=== PATIENT | female | born 1950 | race Hispanic/Latino ===

== ENCOUNTER 2017-12-21 21:06 | Emergency (ER) | payer MEDICARE, OTHER ==
[2017-12-21] MEDS ORDERED: AMOXICILLIN/POTASSIUM CLAV 875-125 TABLET PO ONE (21:48)
[2017-12-21] MEDS ORDERED: TETANUS/DIPHTHERIA TOXOID [ADULT] 0.5 ML VIAL IM ONE (21:49)
== END 2017-12-21 22:20 | disposition home or self-care (01) ==
LOC: EDH 21:06
DX: S80.812A Abrasion, left lower leg, initial encounter (principal); W54.0XXA Bitten by dog, initial encounter; Y93.89 Activity, other specified; Y92.89 Other specified places as the place of occurrence of the external cause; Y99.8 Other external cause status
CPT/HCPCS: 90471; 90714

== ENCOUNTER → 2018-12-30 | Outpatient (CLI) | payer OTHER | END | disposition home or self-care (01) | LOC: RAH 16:50 | PROVIDERS: ATTEND Internal Medicine | DX: M16.12 Unilateral primary osteoarthritis, left hip (principal) | CPT/HCPCS: 73502 ==

== ENCOUNTER → 2023-10-26 | Outpatient (CLI) | payer MEDICARE | END | disposition home or self-care (01) | LOC: RAH 10-25 15:20 | PROVIDERS: ATTEND Internal Medicine | DX: Z01.818 Encounter for other preprocedural examination (principal); R05.9 Cough, unspecified | CPT/HCPCS: 71046 ==

== ENCOUNTER 2023-11-12 05:00 | Observation (INO) | payer MEDICARE ==
[2023-11-07 11:46] VITALS: BP 127/73; PULSE 83; RESP 18
[2023-11-12] VITALS (28 sets, daily range): BP systolic 105–139; BP diastolic 42–79; PULSE 64–94; RESP 10–18; O2SAT 95
[~2023-11-12] VITALS: Ht 165.1 cm; Wt 85.9 kg
[~2023-11-12 05:00] MED LIST: ATOR20TA65 PO; DICL75TA5 PO; DICY10CA2 PO; ESOM20CA39 PO; GABA600T10 PO; GLIM1TAB18 PO; LORA10TA7 PO; LOSA100T59 PO; METO-391 PO; SEMA1PEN3 SQ
[2023-11-12] MEDS ORDERED: LIDOCAINE PF 100MG/5ML (2%) SYRINGE 5ML ONE (07:03)
[2023-11-12] MEDS ORDERED: SUCCINYLCHOLINE CHLORIDE 20 MG/ML 10 ML VIAL ONE (07:03)
[2023-11-12] MEDS ORDERED: MIDAZOLAM HCL 1 MG/ML 2ML VIAL ONE (07:04)
[2023-11-12] MEDS ORDERED: DEXAMETHASONE SOD PHOSPHATE 10MG/ML 1ML VIAL ONE (07:04)
[2023-11-12] MEDS ORDERED: NEOSTIGMINE METHYLSULFATE 1MG/ML IV ONE (07:04)
[2023-11-12] MEDS ORDERED: ONDANSETRON 4MG INJ ONE (07:04)
[2023-11-12] MEDS ORDERED: GLYCOPYRROLATE 0.2 MG/ML 5 ML VIAL ONE (07:04)
[2023-11-12] MEDS ORDERED: PROPOFOL 10 MG/ML 20ML VIAL IV ONE (07:04)
[2023-11-12] MEDS ORDERED: ROCURONIUM BROMIDE 10MG/1ML 5ML VL ONE (07:05)
[2023-11-12] MEDS ORDERED: FENTANYL CITRATE PF 50 MCG/1 ML 2ML VIAL ONE ×2 (07:05→08:00)
[2023-11-12] MEDS ORDERED: CEFAZOLIN SODIUM 1 GM VIAL ONE (07:07)
[2023-11-12] MEDS: 0.9%NACL 1000ML 1,000 ML IV ONE (07:16)
[2023-11-12] MEDS: CEFAZOLIN SODIUM 2 GM VIAL ONE (07:16)
[2023-11-12] MEDS: TRANEXAMIC ACID 1000MG/10ML ONE ×2 (08:33→10:14)
[2023-11-12] MEDS: CEFAZOLIN SODIUM 1 GM VIAL ONE (09:14)
[2023-11-12] MEDS: 0.9%NACL 48.45 ML, ROPIVACAINE 0.5% 49.25ML, EPINEPH 0.5MG KETOROLAC 30MG,CLONIDINE 80MCG IV PRN (09:14)
[2023-11-12] MEDS: GENTAMICIN SULFATE 80 MG/2 ML VIAL ONE (09:14)
[2023-11-12] MEDS ORDERED: PHENYLEPHRINE HCL 10 MG/ML 1ML VIAL IV ONE (09:54)
[2023-11-12] MEDS: MEPERIDINE-PF 25 MG/ML SYG ONE (11:22)
[2023-11-12] MEDS ORDERED: DiphenhydrAMINE HCL 50 MG/ML VIAL IM PRN (12:30)
[2023-11-12] MEDS ORDERED: LACTULOSE 20 GM/30 ML UDCUP PO PRN (12:30)
[2023-11-12] MEDS ORDERED: DIPHENHYDRAMINE HCL 25 MG CAPSULE PO PRN (12:30)
[2023-11-12] MEDS ORDERED: CEFAZOLIN SODIUM 2 GM VIAL IVPB SCH (12:30)
[2023-11-12] MEDS ORDERED: TRAMADOL HCL 50 MG TABLET PO PRN (12:30)
[2023-11-12] MEDS ORDERED: ACETAMINOPHEN 325 MG TAB PO SCH (12:30)
[2023-11-12] MEDS ORDERED: MAG/ALUM/SIMETH 30 ML UDCUP PO PRN (12:30)
[2023-11-12] MEDS ORDERED: ACETAMINOPHEN 325 MG TAB PO PRN ×2 (12:30)
[2023-11-12] MEDS ORDERED: DIPHENHYDRAMINE HCL 25 MG CAPSULE PO SCH (12:30)
[2023-11-12] MEDS ORDERED: BENZOCAINE/MENTH/CETYLPYRD CL 1 EACH LOZENGE MM PRN (12:30)
[2023-11-12] MEDS ORDERED: DIPHENOXYLATE HCL/ATROPINE 2.5/0.025 MG TAB PO PRN (12:30)
[2023-11-12] MEDS ORDERED: ONDANSETRON 4MG INJ IVP PRN (12:30)
[2023-11-12] MEDS ORDERED: DICYCLOMINE HCL 20 MG TAB PO PRN (13:30)
[2023-11-12] MEDS ORDERED: Semaglutide (Ozempic) 1 MG SQ SCH (14:00)
[2023-11-12] MEDS: 0.9%NACL 1000ML 1,000 ML IV SCH (15:33)
[2023-11-12] MEDS: HYDROMORPH /0.9% NACL/PF PCA 50 ML IV PRN (15:59)
[2023-11-12] MEDS ORDERED: DEXTROSE 50%-WATER 50 ML DISP.SYRIN IV PRN (16:30)
[2023-11-12] MEDS: INSULIN HUMULIN R 100 UNIT/ML 3ML SQ SCH (16:30)
[2023-11-12] MEDS ORDERED: GLUCAGON 1MG KIT 1 MG ML IM PRN (16:30)
[2023-11-12] MEDS: GABAPENTIN 300 MG CAPSULE PO SCH (20:58)
[2023-11-12] MEDS: PANTOPRAZOLE 40 MG TAB DR PO SCH (20:58)
[2023-11-12] MEDS: ATORVASTATIN 20 MG TABLET PO SCH (20:58)
[2023-11-12] MEDS: LOSARTAN 100 MG TABLET PO SCH (20:59)
[2023-11-12] MEDS: METOPROLOL SUCCINATE 50 MG TAB.SR.24H PO SCH (20:59)
[2023-11-12] MEDS: CEFAZOLIN SODIUM 3 GM in DEXTROSE 5%-WATER 100 ML IVPB SCH (21:15)
[2023-11-13 04:20] VITALS: BP 103/55; PULSE 83; RESP 18
[2023-11-13 04:28] LABS: HEMATOCRIT 37.6 % (36-48); MEAN CORPUSCULAR HEMOGLOBIN 29.9 pg (27.0-33.0); MEAN CORPUSCULAR HGB CONC 32.7 g/dL (32.0-36.0); MEAN CORPUSCULAR VOLUME 91.3 fL (79-99); RED BLOOD CELL COUNT(AUTO) 4.12 MIL/uL (4.00-5.50); RED CELL DISTRIBUTION WIDTH 13.2 % (11.0-15.5); WHITE BLOOD COUNT (AUTO) 15.3 K/uL (4.8-10.8)
[2023-11-13 04:37] LABS: CREATININE 0.7 mg/dL (0.5-1.5); POTASSIUM 4.1 mmol/L (3.5-5.1)
[2023-11-13 08:00] VITALS: BP 133/57; PULSE 79; RESP 16; O2SAT 95
[2023-11-13] MEDS: LORATADINE 10 MG TABLET PO SCH (09:05)
[2023-11-13] MEDS: RIVAROXABAN 10 MG TABLET PO SCH (09:05)
[2023-11-13] MEDS: GLIMEPIRIDE 2 MG TABLET PO SCH (09:06)
[2023-11-13 12:00] VITALS: BP 118/56; PULSE 78; RESP 17
== END 2023-11-13 19:05 | disposition home or self-care (01) ==
LOC: DAH 05:00 → INTOOBSV 05:01 → DAHIP 05:01 → DAH 05:01 → OBSVTOIN 05:01 → 4BH 11:10
PROVIDERS: ADMIT Orthopaedic Surgery; ATTEND Orthopaedic Surgery
DX: M17.12 Unilateral primary osteoarthritis, left knee (principal); E11.9 Type 2 diabetes mellitus without complications; I10 Essential (primary) hypertension; E78.5 Hyperlipidemia, unspecified; K21.9 Gastro-esophageal reflux disease without esophagitis; F41.9 Anxiety disorder, unspecified; E66.9 Obesity, unspecified; I25.10 Atherosclerotic heart disease of native coronary artery without angina pectoris; Z68.31 Body mass index [BMI] 31.0-31.9, adult; Z98.82 Breast implant status; Z85.3 Personal history of malignant neoplasm of breast
CPT/HCPCS: 93005; 87641; 27447; 96365; 96366 ×2; 96368; 82948 ×6; 97161; 97012; 97116 ×3; 97530 ×7; 80048; 85027; 36415; A6260; A4510; A4663; J7120; A4215 ×2; A4649 ×4; J3010 ×2; J0690 ×4; J3490 ×4; J1100; J0330; J7030 ×2; J0171; J2001; J1580; J2250; J7060; J2704; J2405; J1885; J2710; J2175; J2795; J2371; J0735; A6223; A4930 ×2; C1763 ×2; C1776; A5120; A4223; A4222; A4221; A6450; G0378 ×7

== ENCOUNTER → 2025-02-12 | Outpatient (CLI) | payer MEDICARE ==
[~2025-02-12] MED LIST changes: -DICL75TA5 PO; +DICY-20 PO; -DICY10CA2 PO; -ESOM20CA39 PO; +ESOM20CA51 PO; +GABA-1405 PO; -GABA600T10 PO; -GLIM1TAB18 PO; +GLIM1TAB56 PO
--- NOTE | 2025-02-12 12:05 | HMCIMG ---
Superficial ultrasound for possible lipoma left posterior neck Findings: There is a mass at the site of clinical concern which measures 2 x 0.6 x 1.7 cm. Its echogenicity is consistent with that of the surrounding subcutaneous tissues. This is consistent with a lipoma. No other masses are seen. Impression: Lipoma at the site of clinical concern.
== END | disposition home or self-care (01) ==
LOC: RAH 10:16
PROVIDERS: ATTEND Internal Medicine
DX: D17.0 Benign lipomatous neoplasm of skin and subcutaneous tissue of head, face and neck (principal); M79.89 Other specified soft tissue disorders
CPT/HCPCS: 76536